=== PATIENT | male | born 2000 | race Caucasian/White ===

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

== ENCOUNTER 2019-02-03 22:55 | Emergency (ER) | payer SELFPAY ==
[2019-02-03 22:55] VITALS: BP 139/79; PULSE 99; RESP 16; TEMP 36.6; O2SAT 98; BMI 26.3
--- NOTE | 2019-02-03 23:31 | ED.VISSUMM ---
- ER Visit Summary Date of Service: 02/03/19 Chief Complaint: [Abscess to the neck] History of Present Illness: The patient is a 19 M [presents to the emergency department with an abscess to the base of his neck that is been there for a couple of months. Patient states that it hurts all the time now. Patient states that his girlfriend tried a pop and got large amount appearing debris from it. He denies any fevers. He is never had to have an incision and drainage before. Physical Examination: [HEENT-PERRLA, EOMI. Cranial nerves II through XII grossly intact. TMs clear. Mucous membranes moist. No adenopathy. Patient has a soft tissue swelling to the base of the neck posteriorly that measures about 4 cm in diameter with a central more fluctuant portion. There is some faint erythema noted. Cardiovascular-regular rate and rhythm without murmur or ectopy Lungs-clear to auscultation, chest wall stable without crepitus or subcu emphysema Abdomen-normoactive bowel sounds, soft, nontender, no rebound or rigidity, no peritoneal signs. Extremities-intact ?4, normal range of motion, normal pulses, atraumatic] Test Results: [None indicated] Emergency Department Course and Treatment: [Incision and drainage of the abscess was undertaken in the emergency department. Area was sterilely draped and prepped. Wound cleansed with Shur-Clens. Wound anesthetized locally with 1% lidocaine total of 4 cc. Using an 11 blade a 2 cm incision was made into the most fluctuant portion of suspected abscess and immediately a large amount of purulent debris was expressed. Using curved hemostats I was able to undermine soft tissues. The wound was irrigated. Small amount of packing was placed quarter inch iodoform gauze. Clean dressing applied.] Treatment Plan: [Patient will be referred to general surgery for follow-up. I suspect this may be a sebaceous cyst that may need complete excision at some point if it continues to recur.] Disposition: [Discharged home in stable condition] Impression: [Soft tissue abscess with incision and drainage] This note was generated with [employer] software. It may contain incorrect words, spelling, and punctuation that were not noted in review of the chart prior to signing ED Disposition - Plan for ED Patient: Referrals: Care Physician,No Primary [Primary Care Provider] -
--- NOTE | 2019-02-03 23:34 | ED.DEP ---
ED Disposition - Plan for ED Patient: Instructions: ED Abscess IandD Prescriptions: Cephalexin [Keflex] 500 mg PO Q6 #40 cap Referrals: Care Physician,No Primary [Primary Care Provider] - Elkin Bellamy MD [STAFF PHYSICIAN] - 5-7 Days
[2019-02-03] MEDS: Cephalexin 250 MG Capsule 500 MG PO (23:40)
== END 2019-02-03 23:43 | disposition home or self-care (01) ==
LOC: ED 23:40
PROVIDERS: Emergency Provider Emergency Medicine
DX: L02.11 Cutaneous abscess of neck (principal); F41.9 Anxiety disorder, unspecified; Z72.0 Tobacco use
CPT/HCPCS: 10060; 99284

== ENCOUNTER 2020-01-10 11:38 | Emergency (ER) | payer SELFPAY ==
[2020-01-10 11:38] VITALS: BP 163/107; PULSE 121; RESP 20; TEMP 36.8; O2SAT 97; BMI 29.1
--- NOTE | 2020-01-10 11:49 | RAD_ITS ---
STUDY: X-RAY CHEST REASON FOR EXAM: Male, 19 years old. SOB, SMOKER TECHNIQUE: Single AP portable view of the chest. COMPARISON: November 04, 2017 FINDINGS: The lungs are clear and expanded. There is no demonstrated pleural abnormality. Normal size heart. Normal mediastinum and cheryle. Normal visualized pulmonary arteries. Normal visualized aortic arch and descending thoracic aorta. Normal visualized thoracic spine. Normal visualized ribs, clavicles, and shoulders. There is no demonstrated abnormality of the visualized soft tissue structures of the upper abdomen. RAD/Chest 1 View (Portable) IMPRESSION: Normal x-ray examination of the chest. Electronically Signed: Emmanuel Larios MD at 12:45 EDT , Service support ,
--- NOTE | 2020-01-10 11:49 | EKG12_ITS ---
Test Reason : SOB Blood Pressure : / mmHG Vent. Rate : 104 BPM Atrial Rate : 104 BPM P-R Int : 172 ms QRS Dur : 078 ms QT Int : 330 ms P-R-T Axes : 032 032 -07 degrees QTc Int : 433 ms Sinus tachycardia Nonspecific T wave abnormality Abnormal ECG Confirmed by EMMA SMART, AMISHA ([id number]), photo editor SILVANO MANLEY ([id number]) on 01/12/2020 12:56:30 PM Referred By: BB Confirmed By:AMISHA CARTER MD
--- NOTE | 2020-01-10 11:50 | ED.DCSUM_ITS ---
History of Present Illness Chief Complaint: Shortness of Breath Informant: Patient Onset: Days - 5 Activity at onset: - - gradual onset Timing: Continuous Quality: - - tightness Current Severity: Mild Maximum Severity: Moderate Worsened by: Nothing Relieved by: Albuterol - for 5 minutes Associated Symptoms: Negative for: Cough, Fever Chest Pain: Continuous, Tightness - mild Narrative: Patient states he had mild asthma as a child but does not deal with it anymore. He has felt some chest tightness and shortness of breath for the past 5 days but no other symptoms. He presents during coronavirus national emergency, however has had no contact with anyone that he knows of that has been infected, and states since the stay at home orders have been issued he has stayed at home and he is local. No recent travel. No pain or swelling in his legs or history of DVT/PE. The discomfort is nonpleuritic and nonexertional. His mom had an albuterol MDI that she lent him, he tried some puffs from it and it helped temporarily but only for very short time. He has no other symptoms. No other recent illnesses. Past Medical History - Allergies and Home Meds Allergies/Adverse Reactions: Allergies No Known Allergies Allergy (Verified 01/10/20 11:38) Primary Care Physician: Care Physician,No Primary [Primary Care Provider] - Past Medical History: None Surgical History: no surgical history Smoking Status: Current every day smoker Review of Systems General: Denies: Chills, Fever, Sweats Eyes: Denies: Visual changes - bilaterally, Diplopia ENT: Denies: Bilateral ear pain, Rhinorrhea, Sore throat Cardiovascular: Reports: Chest pain. Denies: Palpitations, Heart racing Respiratory: Reports: Dyspnea. Denies: Cough, Dyspnea on exertion Gastrointestinal: Denies: Abdominal pain, Nausea, Vomiting, Diarrhea, Melena, Hematochezia Genitourinary: Denies: Dysuria, Hematuria, Frequency Musculoskeletal: Denies: Back pain, Extremity Pain Skin: Denies: Rash, Wounds Neurological: Denies: Headache, Weakness, Numbness Physical Exam Vital Signs/Narrative: Vital Signs Temp Pulse Resp BP Pulse Ox 01/10/20 11:38 98.3 F 121 H 20 H 163/107 H 97 Inital Vital Signs reviewed: Yes General: Well nourished, Well developed, No Acute Distress - Conversive in full sentences Head: Normocephalic, Atraumatic Eyes: Perrl, EOMI ENT: Moist mucous membranes, No rhinorrhea Neck: Supple, Nontender, No lymphadenopathy, No JVD Cardiovascular: Regular rate, Regular rhythm, No murmurs, Tachycardia Respiratory: No distress, CTA bilaterally, Chest nontender Abdomen: Soft, Nontender, Nondistended, Normal bowel sounds Back: Nontender, Normal Inspection Extremities: Nontender, No edema. Negative for: Calf Tenderness Skin: Normal color, No rash Neurological: Alert, Oriented x3, Cranial nerves II-XII grossly intact, Normal Strength, Normal Sensation Psychological: Normal affect, Normal Mood Diagnostic/Tx/Re-eval Impressions Chest X-Ray 01/10/20 11:49 IMPRESSION: Normal x-ray examination of the chest. Electronically Signed: Emmanuel Larios MD at 12:45 EDT , Service support , 01/10/20 11:49 Chest 1 View (Portable) [RAD] Stat Laboratory Results 01/10/20 01/10/20 01/10/20 13:00 13:00 13:00 WBC 9.9 RBC 5.08 Hgb 15.1 Hct 44.5 MCV 87.6 MCH 29.7 MCHC 33.9 RDW Std Deviation 37.5 RDW Coeff of [place] 11.7 Plt Count 331 MPV 9.7 Immature Gran % (Auto) 0.500 Neut % (Auto) 57.0 Lymph % (Auto) 31.5 [place] % (Auto) 8.1 Eos % (Auto) 2.2 Baso % (Auto) 0.7 Absolute Neuts (auto) 5.6 Absolute Lymphs (auto) 3.10 Nucleated RBC % 0 D-Dimer Quant (PE/DVT) 0.33 Sodium 141 Potassium 3.9 Chloride 107 Carbon Dioxide 29.0 Anion Gap 5 BUN 14 Creatinine 0.97 Estim Creat Clear Calc 133.33 Est GFR (MDRD) Af Amer 125 Est GFR (MDRD) Non-Af 103 BUN/Creatinine Ratio 14.4 Glucose 93 Calcium 9.2 - Rhythm Strip Rhythm Strip: Sinus Tach Rate: 115 Ectopy: None - EKG Initial EKG Interpretation: No Acute Injury Pattern, Sinus Tachycardia - 104, - - normal EKG Treatment - Dyspnea: Albuterol, Atrovent Repeat Evaluation: Improved - only very little - Medical Decision Making Initially obtained an EKG and a chest x-ray, both of which were normal, and gave the patient a duo nebulizer treatment to see if that helped, as my suspicion is that this is reactive airway in nature. However the DuoNeb only helped him very little, maybe not at all. His dyspnea is relatively mild in the first place, however given this I decided it might be better to obtain some blood work including a d-dimer, given his resting tachycardia. Luckily everything returned normal and negative. Given this, I think it would be most reasonable to put him on a prednisone burst to see if that helps and advised that he follow-up, he was referred to a PCP and he is comfortable with that plan. ED Disposition - Plan for ED Patient: Disposition: Home or Assisted Living Diagnosis: Dyspnea Instructions: ED Dyspnea, ED REACTIVE AIRWAY DISEASE Adult Prescriptions: Prednisone 40 mg PO DAILY #10 tab Prescription Printed Referrals: Vel,Nita, DO [NON-STAFF] - 1 Week if not improving
[2020-01-10] MEDS: Ipratropium/Albuterol Sulfate 3 ML AMPUL.NEB INHALATION (12:18)
[2020-01-10 12:25] VITALS: PULSE 106; RESP 16
[2020-01-10 12:59] VITALS: BP 151/85; PULSE 90; RESP 16; O2SAT 98
[2020-01-10 13:16] LABS: Absolute Neutrophil Count 5.6 X10^3/uL (2.0-7.7); Basophil# 0.07 X10^3/uL; Basophil% 0.7 % (0-1); Eosinophil# 0.22 X10^3/uL; Eosinophils% 2.2 % (0-5); Hematocrit 44.5 % (40-54); Hemoglobin 15.1 g/dL (13.0-16.5); Lymphocyte % 31.5 % (19-41); Mean Corp Hgb Conc 33.9 g/dL (32-36); Mean Corpuscular Hgb 29.7 pg (27.0-32.0); Mean Corpuscular Volume 87.6 fL (80-94); Mean Platelet Vol. 9.7 fl (6.2-12.0); Monocyte% 8.1 % (0-10); NRBC Flagged by Analyzer 0 % (0-5); Neutrophil # 5.61 X10^3/uL (2.7-7.7); Platelet Count 331 K/mm3 (150-450); RBC Distribution Width CV 11.7 % (11.6-14.6); RBC Distribution Width SD 37.5 fl (35.1-43.9); Red Blood Count 5.08 M/mm3 (4.6-6.2); White Blood Count 9.9 K/mm3 (4.4-11.0)
[2020-01-10 13:23] LABS: Anion Gap 5 (5-15); BUN 14 mg/dL (7-18); BUN/Creat Ratio 14.4 RATIO (10-20); Calcium,Total 9.2 mg/dL (8.5-10.1); Chloride 107 mmol/L (98-107); Creatinine, Serum 0.97 mg/dL (0.70-1.30); EST Glomerular Filtration Rate 103 mL/min (>60); Est Glom Filt Rate - Afr Amer 125 mL/min (>60); Estimated Creatinine Clearance 133.33 ml/min; Glucose 93 mg/dL (74-106); Potassium 3.9 mmol/L (3.5-5.1); Sodium Level 141 mmol/L (136-145)
[2020-01-10 13:29] LABS: D-Dimer Quantitative (DVT/PE) 0.33 FEU/ug/m (0.27-0.49)
[2020-01-10] MEDS: predniSONE 20 MG Tablet 40 MG PO (13:48)
[2020-01-10 13:53] VITALS: PULSE 86; RESP 16; O2SAT 96
== END 2020-01-10 13:57 | disposition home or self-care (01) ==
PROVIDERS: Emergency Provider Emergency Medicine
DX: R06.00 Dyspnea, unspecified (principal); R07.89 Other chest pain; F17.200 Nicotine dependence, unspecified, uncomplicated
CPT/HCPCS: 71045; 80048; 85025; 85379; 93005; 94640; 99284; A4216

== ENCOUNTER 2020-05-06 16:37 | Emergency (ER) | payer MEDICAID, SELFPAY ==
[2020-05-06 16:39] VITALS: BP 157/103; PULSE 99; RESP 16; TEMP 36.6; O2SAT 98; BMI 29.8
--- NOTE | 2020-05-06 17:22 | EKG12_ITS ---
Test Reason : ILLNESS Blood Pressure : / mmHG Vent. Rate : 083 BPM Atrial Rate : 083 BPM P-R Int : 164 ms QRS Dur : 086 ms QT Int : 362 ms P-R-T Axes : 014 013 -02 degrees QTc Int : 425 ms Normal sinus rhythm Normal ECG Confirmed by TANMAY SMART, IRMA ([id number]), non linear editor PINEDA MCGEE ([id number]) on 05/10/2020 8:42:51 AM Referred By: Confirmed By:IRMA DONATO MD
--- NOTE | 2020-05-06 17:45 | RAD_ITS ---
STUDY: X-RAY CHEST REASON FOR EXAM: Male, 20 years old. GENERALIZED WEAKNESS, FATIGUE AND and quot;NOT FEELING RIGHT and quot; FOR THE PAST 4 MONTHS, WORSENING RECENTLY TECHNIQUE: Frontal and lateral views of the chest. COMPARISON: 01/10/2020 FINDINGS: The lungs are clear and expanded. There is no demonstrated pleural abnormality. Normal size heart. Normal mediastinum and cheryle. Normal visualized pulmonary arteries. Normal visualized aortic arch and descending thoracic aorta. Normal visualized thoracic spine. Normal visualized ribs, clavicles, and shoulders. There is no demonstrated abnormality of the visualized soft tissue structures of the upper abdomen. RAD/Chest PA and Lateral IMPRESSION: Normal x-ray examination of the chest. Electronically Signed: Don Patel MD at 17:59 EDT , Service support ,
[2020-05-06 18:04] VITALS: BP 144/99; PULSE 97; RESP 16; O2SAT 97
[2020-05-06 18:10] LABS: Bacteria 0 SEEN /hpf (None Seen); Mucous, Urine 0 SEEN /hpf (<or=2+); Red Blood Cells-Urine 0 SEEN /hpf (0-5); Squamous Epithelial Cells - UA 0 SEEN /hpf (0-5); White Blood Cells 0 SEEN /hpf (0-5)
[2020-05-06 18:12] LABS: Absolute Lymphocyte Count 2.64 X10^3/uL (0.83-4.51); Absolute Neutrophil Count 9.1 X10^3/uL (2.0-7.7); Basophil# 0.09 X10^3/uL; Basophil% 0.7 % (0-1); Eosinophil# 0.18 X10^3/uL; Eosinophils% 1.4 % (0-5); Hematocrit 45.5 % (40-54); Hemoglobin 15.1 g/dL (13.0-16.5); Lymphocyte # 2.64 X10^3/ul (4.0); Lymphocyte % 20.3 % (19-41); Mean Corp Hgb Conc 33.2 g/dL (32-36); Mean Corpuscular Hgb 29.4 pg (27.0-32.0); Mean Corpuscular Volume 88.5 fL (80-94); Mean Platelet Vol. 9.8 fl (6.2-12.0); Monocyte# 0.93 X10^3/uL; Monocyte% 7.2 % (0-10); NRBC Flagged by Analyzer 0 % (0-5); Neutrophil # 9.08 X10^3/uL (2.7-7.7); Neutrophil % 69.9 % (47-70); Platelet Count 353 K/mm3 (150-450); RBC Distribution Width CV 11.8 % (11.6-14.6); Red Blood Count 5.14 M/mm3 (4.6-6.2)
[2020-05-06 18:21] LABS: Color, Urine Yellow (Yellow); Glucose, Dipstick Normal (Normal); Ketone-Dipstick 5 mg/dl (Negative); Leukocyte Esterase-Dipstick Negative /ul (Negative); Nitrite-Dipstick Negative (Negative); Occult Blood-Urine Negative /ul (Negative); Protein-Dipstick 15 mg/dl (Negative); Urine Bilirubin Dipstick Negative (Negative); Urine Clarity Sl. Cloudy (Clear); Urine Urobilinogen Normal (Normal)
[2020-05-06 18:34] LABS: Anion Gap 2 (5-15); BUN 13 mg/dL (7-18); BUN/Creat Ratio 12.7 RATIO (10-20); Calcium,Total 9.4 mg/dL (8.5-10.1); Chloride 110 mmol/L (98-107); Creatinine, Serum 1.02 mg/dL (0.70-1.30); EST Glomerular Filtration Rate 98 mL/min (>60); Est Glom Filt Rate - Afr Amer 118 mL/min (>60); Estimated Creatinine Clearance 125.74 ml/min; Glucose 89 mg/dL (74-106); Potassium 3.9 mmol/L (3.5-5.1); Sodium Level 140 mmol/L (136-145); Thyroid Stim Hormone (TSH) 1.47 uIU/mL (0.358-3.74)
[2020-05-06 18:36] LABS: Amorphous Sediment 1+
[2020-05-06 19:36] LABS: Internal QC Validated? YES +Cl - CLEAR BKGD; Monotest Negative (Negative)
--- NOTE | 2020-05-06 19:40 | ED.VIS.GEN ---
History of Present Illness Chief Complaint: Weakness Informant: Patient Onset: Month(s) Context: Gradual Onset Timing: Continuous Narrative: Patient is a 20-year-old male with no significant past medical history presenting with generalized weakness and malaise. Patient states he has been feeling normal for months but is been worse over the past month. Patient states that when he goes to play basketball he feels that his legs are like Jell-O and he has no energy to play. He states last summer he was able play basketball easily. He notes that over the past year he has had increased weight gain as well as decreased activity. He denies associated night sweats or rash. He denies any associated shortness of breath but intermittently feels that he has a hard time taking a breath. Patient states he does intermittently get a weird sensation in his left chest wall but has been associated with anxiety. He currently denies any chest pain or any abnormal sensations in his chest. He notes today he did have an episode of lightheadedness and nausea but no vomiting. He had a normal bowel movement yesterday. He does admit to tobacco use and minimal alcohol use but denies any drug use. He denies any urinary symptoms. He denies any sick contacts. He states he just got insurance so he is trying to get everything figured out. He has not seen a doctor in over 3 years and does not currently have a primary care doctor. Patient is not aware of any family history of any cardiac conditions. He notes his father does have a history of Graves' disease. He denies any other complaints at this time. Past Medical History - Allergies and Home Meds Allergies/Adverse Reactions: Allergies No Known Allergies Allergy (Verified 05/06/20 16:39) Primary Care Physician: Care Physician,No Primary [Primary Care Provider] - Past Medical History: - - ADHD Surgical History: no surgical history Smoking Status: Current every day smoker Alcohol: Occasional Drugs: None Review of Systems General: Reports: Malaise, - - Lightheaded. Denies: Chills, Fever, Sweats Eyes: Denies: Visual changes - bilaterally, Diplopia ENT: Denies: Rhinorrhea, Sore throat Cardiovascular: Reports: Chest pain. Denies: Palpitations Respiratory: Reports: - - Difficulty taking a deep breath. Denies: Dyspnea, Cough, Dyspnea on exertion Gastrointestinal: Reports: Nausea. Denies: Abdominal pain, Vomiting, Diarrhea, Melena, Hematochezia Genitourinary: Denies: Dysuria, Hematuria, Frequency Musculoskeletal: Denies: Back pain, Extremity Pain Skin: Denies: Rash, Wounds Neurological: Denies: Headache, Weakness, Numbness Psych: Reports: Anxiety. Denies: Depression Physical Exam Vital Signs/Narrative: Vital Signs Temp Pulse Resp BP Pulse Ox 05/06/20 18:04 97 16 144/99 H 97 05/06/20 16:39 98 F 99 16 157/103 H 98 Inital Vital Signs reviewed: Yes General: Well nourished, Well developed, No Acute Distress Head: Normocephalic, Atraumatic Eyes: Perrl, EOMI ENT: Moist mucous membranes, No rhinorrhea, - - Bilateral cerumen impactions Neck: Supple, Nontender, No JVD Cardiovascular: Regular rate, Regular rhythm, No murmurs Respiratory: No distress, CTA bilaterally, Chest nontender Abdomen: Soft, Nontender, Nondistended, Normal bowel sounds. Negative for: Guarding, Rebound tenderness Back: Nontender, Normal Inspection. Negative for: CVA tenderness Extremities: Nontender, No edema Skin: Normal color, No rash Neurological: Alert, Oriented x3, Cranial nerves II-XII grossly intact, Normal Strength, Normal Sensation Psychological: Normal affect, Normal Mood. Negative for: Tearful, Agitated Diagnostic/Tx/Re-eval Chest X-Ray - ED: 2 View, Read by ED Physician, Read by Radiologist, No Acute Disease Clinical Impression(s) from Imaging Studies Chest X-Ray 05/06/20 17:45 IMPRESSION: Normal x-ray examination of the chest. Electronically Signed: Don Patel MD at 17:59 EDT , Service support , Laboratory Data 05/06/20 05/06/20 05/06/20 18:00 18:00 18:00 WBC 13.0 H RBC 5.14 Hgb 15.1 Hct 45.5 MCV 88.5 MCH 29.4 MCHC 33.2 RDW Std Deviation 38.0 RDW Coeff of [place] 11.8 Plt Count 353 MPV 9.8 Immature Gran % (Auto) 0.500 Neut % (Auto) 69.9 Lymph % (Auto) 20.3 [place] % (Auto) 7.2 Eos % (Auto) 1.4 Baso % (Auto) 0.7 Absolute Neuts (auto) 9.1 H Absolute Lymphs (auto) 2.64 Nucleated RBC % 0 Sodium 140 Potassium 3.9 Chloride 110 H Carbon Dioxide 28.0 Anion Gap 2 L BUN 13 Creatinine 1.02 Estim Creat Clear Calc 125.74 Est GFR (MDRD) Af Amer 118 Est GFR (MDRD) Non-Af 98 BUN/Creatinine Ratio 12.7 Glucose 89 Calcium 9.4 Troponin I < 0.015 TSH 1.47 Urine Color Urine Clarity Urine pH Ur Specific [place] Urine Protein Urine Glucose (UA) Urine Ketones Urine Occult Blood Urine Nitrite Urine Bilirubin Urine Urobilinogen Ur Leukocyte Esterase Urine RBC Urine WBC Ur Squamous Epith Cells Amorphous Sediment Urine Bacteria Urine Mucus Monoscreen Negative 05/06/20 18:00 WBC RBC Hgb Hct MCV MCH MCHC RDW Std Deviation RDW Coeff of [place] Plt Count MPV Immature Gran % (Auto) Neut % (Auto) Lymph % (Auto) [place] % (Auto) Eos % (Auto) Baso % (Auto) Absolute Neuts (auto) Absolute Lymphs (auto) Nucleated RBC % Sodium Potassium Chloride Carbon Dioxide Anion Gap BUN Creatinine Estim Creat Clear Calc Est GFR (MDRD) Af Amer Est GFR (MDRD) Non-Af BUN/Creatinine Ratio Glucose Calcium Troponin I TSH Urine Color Yellow Urine Clarity Sl. Cloudy Urine pH 6.0 Ur Specific [place] 1.020 Urine Protein 15 H Urine Glucose (UA) Normal Urine Ketones 5 H Urine Occult Blood Negative Urine Nitrite Negative Urine Bilirubin Negative Urine Urobilinogen Normal Ur Leukocyte Esterase Negative Urine RBC 0 SEEN Urine WBC 0 SEEN Ur Squamous Epith Cells 0 SEEN Amorphous Sediment 1+ Urine Bacteria 0 SEEN Urine Mucus 0 SEEN Monoscreen - Rhythm Strip Rhythm Strip: Sinus Rhythm Rate: 83 Ectopy: None - EKG Initial EKG Interpretation: Sinus Rhythm, - - Normal sinus rhythm at a rate of 83 Normal intervals Normal axis Normal ST segments Compared to prior EKG on 01/10/2020 no significant change - Medical Decision Making Patient is evaluated for generalized malaise. His symptoms are quite nonspecific. He notes intermittent does have some chest pain does report anxiety.Patient EKG is normal. Chest x-rays not show any acute process. CBC has a mild leukocytosis of 13 but I do not have a source. Patient's BMP is remarkable only for a low anion gap of 2. Again this is nonspecific. His troponin is normal as well as his teeth TSH. Urinalysis shows 5 ketones but no signs of infection. Patient might have some corresponding mild dehydration. His mono screen is negative. The exact cause of symptoms is not clear. I do question of there could be a psychogenic cause such as depression. Patient will be given referral for outpatient PCP for further follow-up. Patient is counseled on signs and symptoms requiring return to the emergency room. Patient verbalizes agreement and understand this plan. Patient discharged home in stable and improved condition. ED Disposition - Plan for ED Patient: Disposition: Home or Assisted Living Diagnosis: Generalized weakness Instructions: ED Weakness [facility] Referrals: Nicolás Schulz MD [STAFF PHYSICIAN] - Counseling,Center [GROUP OF PHYSICIANS] -
[2020-05-06 20:04] VITALS: BP 138/70; PULSE 78; RESP 16; O2SAT 98
== END 2020-05-06 20:05 | disposition home or self-care (01) ==
PROVIDERS: Emergency Provider Emergency Medicine
DX: R53.1 Weakness (principal); R07.89 Other chest pain; E86.0 Dehydration; F90.9 Attention-deficit hyperactivity disorder, unspecified type; F17.200 Nicotine dependence, unspecified, uncomplicated
CPT/HCPCS: 71046; 80048; 81001; 84443; 84484; 85025; 86308; 93005; 99282; A4216

== ENCOUNTER 2023-03-04 13:32 | Emergency (ER) | payer MEDICAID, SELFPAY ==
[2023-03-04 13:34] VITALS: BP 129/91; PULSE 90; RESP 18; TEMP 36; O2SAT 99; BMI 29.2
--- NOTE | 2023-03-04 14:01 | ED.VIS.CHEST ---
HPI History of Present Illness Chief Complaint: Chest Pain PFSH PFSH Home Medications albuterol sulfate 90 mcg/actuation aerosol inhaler 1 inh inhalation Q6H PRN Wheezing 03/04/23 [History Last Taken Unknown] Allergy/AdvReac Type Severity Reaction Status Date / Time No Known Allergies Allergy Verified 03/04/23 13:33 Social History Smoking Status: Current every day smoker tobacco type: cigarettes EXAM Physical Exam Const Vital Signs: 03/04/23 13:34 03/04/23 14:26 03/04/23 13:54 Temperature 96.8 F L Temperature Source Temporal Pulse Rate 90 Respiratory Rate 18 Respiratory Effort Normal Non-Labored Blood Pressure 129/91 H Blood Pressure Mean 103 Pulse Ox 99 Oxygen Delivery Method Room Air Room Air Heart Score History: Slightly/Non-Suspicious ECG: Normal Age: </= 45 years Risk Factors: No Risk Factors Troponin: </= Normal Limit Score: 0 MDM MDM MDM Narrative Medical decision making narrative: HISTORY OF PRESENT ILLNESS: 23-year-old male here with chest pain. Patient states this began suddenly 6 hours ago is worse with a deep breath. Denies any vomiting. Denies any syncope. He denies any family history of early cardiac . He states the pain is sharp. Is not associate with cough or fever. He denies associated lower extremity edema. He denies any drug use such as methamphetamine or cocaine. The patient denies recent surgery in the last 4 weeks or immobilization in the last 3 days, denies previous diagnosis of DVT or PE, hemoptysis, unilateral leg swelling or malignancy with treatment the last 6 months. No estrogen use noted. Patient denies sudden onset of pain, no tearing sensation, no migratory symptoms, no new numbness, weakness or loss of sensation. Patient denies family history or personal history of Marfan syndrome or Jessee-Danlos REVIEW OF SYSTEMS: Pertinent positives: Chest pain, shortness of breath Pertinent negatives: Syncope, focal numbness or weakness PHYSICAL EXAM: Nursing triage notes reviewed, Vital signs reviewed Constitutional: please see mdm HENT: MMM Eyes: Pupils equal round and reactive to light, Extraocular muscles intact Neck: No stridor, no JVD, full neck ROM Lungs: Clear to auscultation, No wheezing or rales. No increased work of breathing, no conversational dyspnea, no accessory muscle use, no nasal flaring. No respiratory distress noted Heart: Regular rate and rhythm, No murmurs, No rubs and No gallops, 2+ distal pulses (radial, femoral, posterior tibial) in all extremities Abdomen: Soft, there is no tenderness, rigidity, rebound or guarding, no obvious peritoneal signs, no palpable pulsatile abdominal masses, no auscultated abdominal bruit : No CVAT Extremities: No edema Neuro: No focal neurological deficits, cranial nerves II through XII intact, 5/5 strength in all extremities. Intact sensation to light touch in all extremities, 2+ reflexes bilateral patella tendons. Normal gait. No ataxia. Skin: No rash or lesions noted MEDICAL DECISION MAKING: Chief Complaint: Chest pain, shortness of breath External records reviewed: No recent stress test, echocardiograms noted in the chart Factors affecting care: None Social determinants of health: None History obtained from others: Consults: ALL IMAGES HAVE BEEN PERSONALLY REVIEWED AND INTERPRETED BY MYSELF. MDM Narrative: The patient was hemodynamically stable, afebrile, nontoxic-appearing I considered the following differential diagnosis: Musculoskeletal chest pain, ACS, arrhythmia, anemia, electrolyte abnormalities, VTE, aortic dissection, rib fracture, pneumothorax I considered pulmonary embolism as a potential diagnosis. I considered obtaining a D-dimer or CTA of the chest however thought these tests were unnecessary given the patient's low risk Wells score, lack of tachycardia, lack of right heart strain on EKG, negative troponin and negative BNP. I considered aortic dissection as a potential diagnosis however patient no historical risk factors such as connective tissue diseases and no physical exam findings such as pulse deficits to suggest aortic dissection. I obtained a broad lab and imaging work-up to further elucidate the etiology the patient's complaints. EKG showed normal sinus rhythm with no ischemic changes. Troponin was negative, BNP was negative. He is not significantly anemic. The patient had no signs of electrolyte abnormalities. The etiology is uncertain however it does not appear to be life or limb threatening. Is likely musculoskeletal in origin. PE less likely given low risk Wells score. Aortic dissection is thought to be less likely given no sudden ripping or tearing pain, migratory pain, palpable pulse inequalities, no focal neurologic deficits concurrent with chest pain. Chance of dissection less than 10/1999. Pericarditis less likely given no pathognomonic EKG changes (no diffuse ST elevations, IL depressions). GI etiology (i.e. Boerhaave syndrome) less likely given no chest or neck crepitus, no vomiting or forced retching. Total critical care time today provided was at least 0 minutes. This excludes separately billable procedures. There was a high probability of clinically significant/life threatening deterioration in the patient's condition which required my urgent intervention. Shared decision making: I will have a discussion with the patient and or visitors regarding risk/benefits of further testing or admission. They will be made aware of of the risk/benefits inherent in this decision they will be given the opportunity to voice understanding. Lab Data Attestation: I reviewed the patient's lab results. Lab results narrative: CBC without leukocytosis, severe anemia, no thrombocytopenia. EKG with normal sinus rhythm, normal axis, normal intervals, no ST or T wave changes to suggest ischemia. No evidence of WPW, [place], ARVD. BMP without evidence of significant electrolyte abnormalities, no anion gap, no acute kidney injury. Troponin is negative, no evidence of myocardial ischemia BNP without evidence of volume overload, increased ventricular stretch or increased transmural wall pressure, not suggestive of CHF Labs: Laboratory Results - last 24 hr 03/04/23 03/04/23 03/04/23 14:39 14:39 14:39 WBC 8.1 RBC 5.05 Hgb 15.3 Hct 44.2 MCV 87.5 MCH 30.3 MCHC 34.6 RDW Std Deviation 38.6 RDW Coeff of [place] 12.1 Plt Count 340 MPV 9.8 Immature Gran % (Auto) 0.200 Neut % (Auto) 64.4 Lymph % (Auto) 26.0 [place] % (Auto) 6.4 Eos % (Auto) 2.1 Baso % (Auto) 0.9 Absolute Neuts (auto) 5.2 Absolute Lymphs (auto) 2.11 Nucleated RBC % 0 Sodium 142 Potassium 4.1 Chloride 108 H Carbon Dioxide 26.0 Anion Gap 8 BUN 10 Creatinine 0.89 Estim Creat Clear Calc 140.47 Est GFR (MDRD) Af Amer 135 Est GFR (MDRD) Non-Af 112 BUN/Creatinine Ratio 11.2 Glucose 101 Calcium 9.6 Troponin I High Sens 5 B-Natriuretic Peptide 6.4 Radiography Chest X-Ray - ED: Read by ED Physician Diagnostic Testing: Clinical Impression(s) from Imaging Studies Chest X-Ray 03/04/23 14:26 IMPRESSION: Normal x-ray examination of the chest. Electronically Signed: Cameron Casey MD at 16:13 EDT , I have personally reviewed the patient's chest x-ray. Chest x-ray is unremarkable for pulmonary edema, pneumothorax, pneumonia or focal cardiopulmonary abnormality. Treatment and Re-Evaluation :: I completed a HEART Score to screen for Major Adverse Cardiac Event (MACE) in this patient. The evidence indicates that the patient is very low risk for MACE and this is consistent with my clinical intuition. The risk of further workup or hospitalization for MACE is likely higher than the risk of the patient having a MACE. It is, therefore, in the patient?s best interest not to do additional emergent testing or to be hospitalized for MACE at this time. Shared Decision-Making No hospitalization indicated I have discussed with the patient my clinical impression and the result of the HEART Score to screen for MACE, as well as the risks of further testing and hospitalization. The HEART Score shows that the risk for MACE is less than 1%. Although the risk of MACE has not been completely eliminated, the risks of further testing or hospitalization for MACE likely exceed any potential benefit, and the patient agrees with not pursuing further emergent evaluation or hospitalization for MACE at this time. Discharge Plan Triage Chief Complaint: Chest Pain Other Complaint: Shortness of Breath ED Provider: Vish Bunn Dx/Rx/DC Orders Clinical Impression: Chest pain Instructions: Chest Pain [facility] Prescriptions: No Action albuterol sulfate 90 mcg/actuation Hfa Aerosol Inhaler 1 inh INHALATION Q6H PRN (Reason: Wheezing) Stand Alone Forms: ED Work / School Excuse Primary Care Provider: Care Physician,No Primary Referrals: [facility],Keri Wheatley [Non-Staff] - Activity Restrictions/Additional Instructions: Thank you for trusting us with your care today! Please take Tylenol (2 pills, 650 mg), ibuprofen (2 pills, 400 mg) every 6 hours as needed for pain and fever control. Please return to the emergency department if your symptoms change or worsen. Please follow with your primary care physician for further outpatient evaluation and management. Disposition Disposition: Home, Self Care
--- NOTE | 2023-03-04 14:26 | RAD_ITS ---
STUDY: X-RAY CHEST REASON FOR EXAM: Male, 23 years old. chest pain TECHNIQUE: Single AP portable view of the chest. COMPARISON: 05/06/2020. FINDINGS: The lungs are clear and expanded. There is no demonstrated pleural abnormality. Normal size heart. Normal mediastinum and cheryle. Normal visualized pulmonary arteries. Normal visualized aortic arch and descending thoracic aorta. Normal visualized thoracic spine. Normal visualized ribs, clavicles, and shoulders. There is no demonstrated abnormality of the visualized soft tissue structures of the upper abdomen. RAD/Chest 1 View (Portable) IMPRESSION: Normal x-ray examination of the chest. Electronically Signed: Cameron Casey MD at 16:13 EDT ,
[2023-03-04 14:50] LABS: Absolute Lymphocyte Count 2.11 X10^3/uL (0.83-4.51); Absolute Neutrophil Count 5.2 X10^3/uL (2.0-7.7); Basophil# 0.07 X10^3/uL; Basophil% 0.9 % (0-1); Eosinophil# 0.17 X10^3/uL; Eosinophils% 2.1 % (0-5); Hematocrit 44.2 % (40-54); Hemoglobin 15.3 g/dL (13.0-16.5); Lymphocyte # 2.11 X10^3/ul (0.83-4.51); Mean Corp Hgb Conc 34.6 g/dL (32-36); Mean Corpuscular Hgb 30.3 pg (27.0-32.0); Mean Corpuscular Volume 87.5 fL (80-94); Mean Platelet Vol. 9.8 fl (6.2-12.0); Monocyte# 0.52 X10^3/uL; Monocyte% 6.4 % (0-10); NRBC Flagged by Analyzer 0 % (0-5); Neutrophil # 5.22 X10^3/uL (2.7-7.7); Neutrophil % 64.4 % (47-70); Platelet Count 340 K/mm3 (150-450); RBC Distribution Width CV 12.1 % (11.6-14.6); RBC Distribution Width SD 38.6 fl (35.1-43.9); Red Blood Count 5.05 M/mm3 (4.6-6.2); White Blood Count 8.1 K/mm3 (4.4-11.0)
[2023-03-04 15:03] LABS: BNP,B-Type NATRIURETIC PEPTIDE 6.4 pg/mL (0-100)
[2023-03-04 15:06] LABS: Anion Gap 8 (5-15); BUN 10 mg/dL (7-18); BUN/Creat Ratio 11.2 RATIO (10-20); Calcium,Total 9.6 mg/dL (8.5-10.1); Chloride 108 mmol/L (98-107); Creatinine, Serum 0.89 mg/dL (0.70-1.30); EST Glomerular Filtration Rate 112 mL/min (>60); Est Glom Filt Rate - Afr Amer 135 mL/min (>60); Estimated Creatinine Clearance 140.47 ml/min; Glucose 101 mg/dL (74-106); Potassium 4.1 mmol/L (3.5-5.1); Sodium Level 142 mmol/L (136-145); Troponin-I HS 5 pg/mL (3.0-78.0)
[2023-03-04 16:28] VITALS: BP 126/78; PULSE 78; RESP 16; TEMP 36.6; O2SAT 100
== END 2023-03-04 16:28 | disposition home or self-care (01) ==
PROVIDERS: Emergency Provider Emergency Medicine; Visit Provider Emergency Medicine
DX: R07.9 Chest pain, unspecified (principal); F17.210 Nicotine dependence, cigarettes, uncomplicated; R06.02 Shortness of breath
CPT/HCPCS: 71045; 80048; 83880; 84484; 85025; 93005; 99284; A4216

== ENCOUNTER 2023-07-06 16:17 | Emergency (ER) | payer MEDICAID, SELFPAY ==
[2023-07-06 16:18] VITALS: BP 160/100; PULSE 103; RESP 14; TEMP 36.4; O2SAT 98; BMI 29.1
[2023-07-06 18:11] LABS: Absolute Lymphocyte Count 1.91 X10^3/uL (0.83-4.51); Absolute Neutrophil Count 6.2 X10^3/uL (2.0-7.7); Basophil# 0.05 X10^3/uL; Basophil% 0.6 % (0-1); Eosinophil# 0.14 X10^3/uL; Eosinophils% 1.6 % (0-5); Hematocrit 42.3 % (40-54); Hemoglobin 14.5 g/dL (13.0-16.5); Lymphocyte # 1.91 X10^3/ul (0.83-4.51); Lymphocyte % 21.3 % (19-41); Mean Corp Hgb Conc 34.3 g/dL (32-36); Mean Corpuscular Hgb 30.7 pg (27.0-32.0); Mean Corpuscular Volume 89.4 fL (80-94); Mean Platelet Vol. 9.8 fl (6.2-12.0); Monocyte# 0.61 X10^3/uL; Monocyte% 6.8 % (0-10); NRBC Flagged by Analyzer 0 % (0-5); Neutrophil # 6.22 X10^3/uL (2.7-7.7); Neutrophil % 69.3 % (47-70); Platelet Count 338 K/mm3 (150-450); RBC Distribution Width CV 11.9 % (11.6-14.6); RBC Distribution Width SD 38.7 fl (35.1-43.9); Red Blood Count 4.73 M/mm3 (4.6-6.2)
[2023-07-06 18:32] LABS: Anion Gap 2 (5-15); BUN 13 mg/dL (7-18); BUN/Creat Ratio 12.5 RATIO (10-20); Calcium,Total 9.2 mg/dL (8.5-10.1); Chloride 107 mmol/L (98-107); Creatinine, Serum 1.04 mg/dL (0.70-1.30); EST Glomerular Filtration Rate 93 mL/min (>60); Est Glom Filt Rate - Afr Amer 112 mL/min (>60); Estimated Creatinine Clearance 120.21 ml/min; Glucose 99 mg/dL (74-106); Sodium Level 139 mmol/L (136-145); Troponin-I HS 5 pg/mL (3.0-78.0)
--- NOTE | 2023-07-06 19:20 | EX.ED.DYSGE1 ---
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 He recovered okay came to the ER, he now feels completely better, and is concerned because his blood pressure was elevated in triage. He denies any abdominal pain, vomiting, shortness of breath, chest discomfort, or headache prodromal symptoms and no other prodromal symptoms [facility] Medical History Asthma Home Medications albuterol sulfate 90 mcg/actuation aerosol inhaler 1 inh inhalation Q6H PRN Wheezing 03/04/23 [History Last Taken Unknown] prednisone 20 mg tablet 20 mg PO DAILY #5 tabs 03/04/23 [Rx Last Taken Unknown] Allergy/AdvReac Type Severity Reaction Status Date / Time No Known Allergies Allergy Verified 03/04/23 13:33 Social History Smoking Status: Current every day smoker tobacco type: cigarettes ROS ROS ED Constitutional Constitutional ED: Denies chills or fever(s) Eyes Eyes: Denies change in vision or diplopia ENT ENT ED: Denies rhinorrhea or sore throat Cardiovascular Cardiovascular: Reports lightheadedness; Denies chest pain, palpitations or syncope Respiratory/Chest Respiratory/Chest: Denies cough or dyspnea Gastrointestinal Gastrointestinal: Reports nausea; Denies abdominal pain, diarrhea or vomiting Genitourinary Genitourinary ED: Denies dysuria or hematuria Musculoskeletal Musculoskeletal: Denies back pain or neck pain Integumentary Denies abscess or rash Neurologic Neurologic: Denies headache(s), paresthesias or weakness Psychiatric Psychiatric: Denies anxiety or suicidal thoughts EXAM Physical Exam Const Vital Signs: 07/06/23 16:18 07/06/23 18:14 Temperature 97.6 F L Temperature Source Temporal Pulse Rate 103 H Respiratory Rate 14 Respiratory Effort Short of Breath Blood Pressure 160/100 H Blood Pressure Mean 120 Pulse Ox 98 Oxygen Delivery Method Room Air Positive well nourished and well developed General Appearance ED: well developed and NAD HEENT Reports moist mucous membranes normocephalic and atraumatic Eyes PERRL and EOMs intact bilaterally Neck full ROM and supple Resp normal respiratory effort and clear to auscultation bilaterally Cardio regular rate, regular rhythm and no murmurs GI non-tender and non-distended Auscultation: normoactive bowel sounds Palpation: soft Back/Spine no CVA tenderness General Back: other FROM Extremity normal to inspection General Extremety ED: Negative for edema, pulses abnormal or tenderness General Extremity: Negative for edema or pulses abnormal Neuro oriented x3, CN's II-XII intact bilaterally and no sensory deficits noted Sensorium / Orientation: awake and alert Motor Exam: strength 5/5 throughout Skin no rashes or lesions noted and no wounds MDM MDM MDM Narrative Medical decision making narrative: Obtain labs including troponin, they are all normal. EKG is normal. Blood pressure pulse was 160/100, his other vital signs are unremarkable. Vasovagal near syncope is in the differential, as is a tachydysrhythmia, less likely to be related to his hypertension which I think is due to anxiety and him being here in the emergency department. Patient is ambulatory now without any symptoms and feels fine. Reassured, advised to follow-up with his doctor. Lab Data Attestation: I reviewed the patient's lab results. Labs: Laboratory Results - last 24 hr 07/06/23 18:00 WBC 9.0 RBC 4.73 Hgb 14.5 Hct 42.3 MCV 89.4 MCH 30.7 MCHC 34.3 RDW Std Deviation 38.7 RDW Coeff of [place] 11.9 Plt Count 338 MPV 9.8 Immature Gran % (Auto) 0.400 Neut % (Auto) 69.3 Lymph % (Auto) 21.3 [place] % (Auto) 6.8 Eos % (Auto) 1.6 Baso % (Auto) 0.6 Absolute Neuts (auto) 6.2 Absolute Lymphs (auto) 1.91 Nucleated RBC % 0 Sodium 139 Potassium 4.0 Chloride 107 Carbon Dioxide 30.0 Anion Gap 2 L BUN 13 Creatinine 1.04 Estim Creat Clear Calc 120.21 Est GFR (MDRD) Af Amer 112 Est GFR (MDRD) Non-Af 93 BUN/Creatinine Ratio 12.5 Glucose 99 Calcium 9.2 Troponin I High Sens 5 Rhythm Strip Rhythm Strip: Sinus Rhythm Rate: 90 Ectopy: None EKG Initial EKG: Attestation: I personally reviewed and interpreted this EKG as follows: Interpretation: Sinus Rhythm and No Acute Injury Pattern Comments: Normal EKG Discharge Plan Triage Chief Complaint: Nausea/Vomiting ED Provider: Emmanuel Hudson Dx/Rx/DC Orders Clinical Impression: Episode of hypertension, Vasovagal near syncope Instructions: ED Near-Fainting- Vagal Reaction Prescriptions: No Action albuterol sulfate 90 mcg/actuation Hfa Aerosol Inhaler 1 inh INHALATION Q6H PRN (Reason: Wheezing) prednisone 20 mg tablet 20 mg PO DAILY Qty: 5 0RF Primary Care Provider: Care Physician,No Primary Referrals: Lisa Valencia MD [Med Staff - Technology Internship] - 5-7 Days Disposition Disposition: Home, Self Care
== END 2023-07-06 19:41 | disposition home or self-care (01) ==
PROVIDERS: Emergency Provider Emergency Medicine; Visit Provider Emergency Medicine
DX: R55 Syncope and collapse (principal); I10 Essential (primary) hypertension; F17.210 Nicotine dependence, cigarettes, uncomplicated; J45.909 Unspecified asthma, uncomplicated; Z79.899 Other long term (current) drug therapy
CPT/HCPCS: 80048; 84484; 85025; 93005; 99284; A4216

== ENCOUNTER → 2024-07-18 | Outpatient (CLI) | payer MEDICAID, SELFPAY ==
--- NOTE | 2024-07-18 08:32 | US_ITS ---
STUDY: ABDOMINAL ULTRASOUND - RIGHT UPPER QUADRANT; ELASTOGRAPHY REASON FOR VISIT: Male, 24 years old. Fatty infiltration of the liver. TECHNIQUE: Ultrasound evaluation of the right upper quadrant was performed with real-time and static desai-scale imaging. Point quantification shear wave elastography was performed (Bambuser). TECHNICAL QUALITY: Adequate. COMPARISON: None. FINDINGS: Liver: The liver measures 16.3 cm. There is increased echogenicity consistent with fatty infiltration. The bile ducts are within normal limits. There is hepatic color flow. The direction of portal flow is hepatopetal. There is no demonstrated mass lesion. Median liver stiffness measured 5.9 kPa. Gallbladder: Normal distended gallbladder. The gallbladder wall measures 2.7 mm. There is a negative sonographic Palma''s sign. There is no pericholecystic fluid. There are no gallstones. Common Bile Duct (C.B.D.): The common bile duct measures 4.3 mm. Pancreas: There is normal echogenicity of the visualized pancreas. There is no demonstrated pancreatic mass or cyst. Right Kidney: Normal size of the right kidney. The right kidney measures 11.1 cm x 4.7 cm x 4.3 cm. Normal renal cortex. The right cortex measures 1.2 cm. There is no demonstrated renal mass or cyst. There is no right hydronephrosis. US/ABD Limited w/ Elastography IMPRESSION: 1. Liver stiffness measures 5.9 kPa compatible with F2-F3 (Mild to moderate liver fibrosis) Metavir score. 2. Fatty infiltration of the liver. Electronically Signed: Vimal Dimas MD at 12:42 EDT ,
[2024-07-18 09:30] LABS: International Normalized Ratio 1.1; Prothrombin Time (Protime)PT. 13.9 SECONDS (11.7-14.9)
[2024-07-18 09:32] LABS: Erythrocyte Sedimentation Rate 13 mm/hr (0-20)
[2024-07-18 09:34] LABS: Absolute Lymphocyte Count 3.28 X10^3/uL (0.83-4.51); Absolute Neutrophil Count 6.2 X10^3/uL (2.0-7.7); Basophil# 0.07 X10^3/uL; Basophil% 0.7 % (0-1); Eosinophil# 0.14 X10^3/uL; Eosinophils% 1.3 % (0-5); Hemoglobin 15.3 g/dL (13.0-16.5); Lymphocyte # 3.28 X10^3/ul (0.83-4.51); Mean Corp Hgb Conc 33.3 g/dL (32-36); Mean Corpuscular Volume 87.3 fL (80-94); Mean Platelet Vol. 9.9 fl (6.2-12.0); Monocyte# 0.81 X10^3/uL; Monocyte% 7.6 % (0-10); NRBC Flagged by Analyzer 0 % (0-5); Neutrophil # 6.24 X10^3/uL (2.7-7.7); Neutrophil % 58.9 % (47-70); Platelet Count 413 K/mm3 (150-450); RBC Distribution Width CV 11.9 % (11.6-14.6); RBC Distribution Width SD 38.5 fl (35.1-43.9); Red Blood Count 5.27 M/mm3 (4.6-6.2); White Blood Count 10.6 K/mm3 (4.4-11.0)
[2024-07-18 10:57] LABS: AST(SGOT) 31 U/L (15-37); Alanine Aminotransfer ALT/SGPT 108 U/L (16-61); Albumin, Serum 4.4 g/dL (3.2-5.0); Alkaline Phosphatase 63 U/L (45-117); Anion Gap 6 (5-15); BUN 14 mg/dL (7-18); BUN/Creat Ratio 14.1 RATIO (10-20); CPK Total, Creatine Kinase 142 U/L (39-308); CRP < 2.90 mg/L (0.0-3.0); Chloride 104 mmol/L (98-107); Creatinine, Serum 0.99 mg/dL (0.70-1.30); EST Glomerular Filtration Rate 98 mL/min (>60); Est Glom Filt Rate - Afr Amer 118 mL/min (>60); Globulin 4.2 g/dL (2.2-4.2); Glucose 93 mg/dL (74-106); Potassium 3.8 mmol/L (3.5-5.1); Protein, Total 8.6 g/dL (6.4-8.2); Sodium Level 137 mmol/L (136-145)
[2024-07-20 15:07] LABS: Anti-Centromere B Ab <0.2 AI (0.0-0.9); Anti-Chromatin <0.2 AI (0.0-0.9); Anti-Jo <0.2 AI (0.0-0.9); Anti-Mitochondrial AB <20.0 Units (0.0-20.0); Anti-Scleroderma-70 AB <0.2 AI (0.0-0.9); Anti-dsDNA Ab <1 IU/mL (0-9); RNP Ab <0.2 AI (0.0-0.9); SJOGREN'S Anti-SS-A test < 0.2 AI (0.0-0.9); SJOGREN'S Anti-SS-B test < 0.2 AI (0.0-0.9); Smith Ab <0.2 AI (0.0-0.9)
[2024-07-21 15:08] LABS: Aldolase 6.8 U/L (3.3-10.3); Angiotensin Convert Enzyme 39 U/L (14-82); Anti-Smooth Muscle ABS 14 Units (0-19); Cytoplasmic Ab (C-ANCA) <1:20 titer (Neg:<1:20); Endomysial Antibody IgA Negative (Negative); IgG, Quant 1236 mg/dL (603-1613); Immunoglobulin A 372 mg/dL (90-386); Immunoglobulin G, Subclass 1 566 mg/dL (248-810); Immunoglobulin G, Subclass 2 498 mg/dL (130-555); Immunoglobulin G, Subclass 3 96 mg/dL (15-102); Immunoglobulin G, Subclass 4 57 mg/dL (2-96); Perinuclear Ab (P-ANCA) <1:20 titer (Neg:<1:20); t-Transglutaminase IgA <2 U/mL (0-3)
== END | disposition home or self-care (01) ==
PROVIDERS: Referring Provider Student in an Organized Health Care Education/Training Program; Visit Provider Student in an Organized Health Care Education/Training Program
DX: R74.8 Abnormal levels of other serum enzymes (principal); K76.0 Fatty (change of) liver, not elsewhere classified
CPT/HCPCS: 86703; 76705; 76981; 80053; 82085; 82164; 82550; 82784; 82787; 83516; 85025; 85610; 85652; 86037; 86140; 86225; 86235; 86255

== ENCOUNTER → 2024-09-08 | Outpatient (CLI) | payer MEDICAID, SELFPAY ==
[2024-09-08 16:39] LABS: AST(SGOT) 29 U/L (15-37); Alanine Aminotransfer ALT/SGPT 89 U/L (16-61); Albumin, Serum 4.3 g/dL (3.2-5.0); Alkaline Phosphatase 61 U/L (45-117); Anion Gap 7 (5-15); BUN 14 mg/dL (7-18); BUN/Creat Ratio 14.8 RATIO (10-20); Calcium,Total 9.7 mg/dL (8.5-10.1); Chloride 105 mmol/L (98-107); Creatinine, Serum 0.95 mg/dL (0.70-1.30); EST Glomerular Filtration Rate 103 mL/min (>60); Est Glom Filt Rate - Afr Amer 124 mL/min (>60); Globulin 4.3 g/dL (2.2-4.2); Glucose 99 mg/dL (74-106); Potassium 3.9 mmol/L (3.5-5.1); Protein, Total 8.6 g/dL (6.4-8.2); Sodium Level 138 mmol/L (136-145)
[2024-09-14 17:07] LABS: Dopamine, Pl <30 pg/mL (0-48); Epinephrine, Pl 74 pg/mL (0-62); Norepinephrine, Pl 364 pg/mL (0-874)
== END | disposition home or self-care (01) ==
LOC: BWCLAB 15:17
PROVIDERS: Referring Provider Student in an Organized Health Care Education/Training Program; Visit Provider Student in an Organized Health Care Education/Training Program
DX: R74.8 Abnormal levels of other serum enzymes (principal)
CPT/HCPCS: 36415; 80053; 82384; 82533

== ENCOUNTER → 2024-10-02 | Outpatient (CLI) | payer MEDICAID, SELFPAY ==
--- NOTE | 2024-10-02 18:14 | CT_ITS ---
INDICATION: elevated LFTs EXAMINATION: CT Abdomen And Pelvis W/ Contrast Injection TECHNIQUE: Helically acquired images were obtained of the abdomen and pelvis with sagittal and coronal reconstructed images. Individualized dose optimization techniques were used for this CT. IV contrast dosage and agent: 100 mL of Isovue-[id number]. Oral contrast: Contrast seen in the small bowel and colon. COMPARISON: None. FINDINGS: VESSELS: No abdominal aortic aneurysm or dissection. LIVER: No evidence of a mass. No intrahepatic or extrahepatic biliary duct dilation. Diffuse decreased attenuation of the liver. GALLBLADDER: No calcified stones. No evidence of cholecystitis. PANCREAS: No focal solid or cystic mass. No evidence of pancreatitis. SPLEEN: Normal. ADRENAL GLANDS: Normal. KIDNEYS AND URETERS: No urinary tract stone. No hydronephrosis or hydroureter. No significant asymmetric perinephric stranding. URINARY BLADDER: Unremarkable. BOWEL: No evidence of diverticulosis or diverticulitis. Appendix appears normal. No evidence of bowel obstruction. REPRODUCTIVE ORGANS: No evidence of a pelvic mass. PERITONEUM: No intraabdominal free fluid or free air. LYMPH NODES: No pathologically enlarged mesenteric or retroperitoneal lymph nodes. ABDOMINAL WALL: No abdominal or pelvic wall hernia. BONES: No acute abnormality. LOWER CHEST: Visualized lung bases are unremarkable. CT/Abdomen/Pelvis WITH Contrast IMPRESSION: 1. No acute abnormality. 2. Fatty infiltration of the liver. Electronically Signed: Gregory Vanegas DO at 7:52 EST ,
== END | disposition home or self-care (01) ==
LOC: CT 18:11
PROVIDERS: Referring Provider Student in an Organized Health Care Education/Training Program; Visit Provider Student in an Organized Health Care Education/Training Program
DX: R94.5 Abnormal results of liver function studies (principal)
CPT/HCPCS: 74177; Q9967

== ENCOUNTER → 2024-10-26 | Outpatient (CLI) | payer MEDICAID, SELFPAY ==
--- NOTE | 2024-10-26 11:10 | ECHOD_ITS ---
Reason For Study: Palpitations Procedure This was a 2D Doppler, Color Flow transthoracic echocardiogram. Exam performed in department. Left Ventricle Normal LV size. Left ventricular systolic function is normal. The left ventricular ejection fraction is 65 %. No regional wall motion abnormalities noted. Right Ventricle Normal RV size. Normal systolic function. Atria Normal left atrium. Normal right atrium. Mitral Valve Normal mitral valve. Tricuspid Valve Normal tricuspid valve. Aortic Valve Trisinus/trileaflet aortic valve. Pulmonic Valve Normal pulmonic valve. Great Vessels Normal aortic root. The pulmonary artery is normal size. Normal inferior vena cava. Pericardium/Pleural No pericardial effusion. MMode/2D Measurements & Calculations LVIDd: 5.1 cm IVSd: 1.1 cm Ao root diam: 3.2 cm LVIDs: 3.8 cm LVPWd: 1.00 cm RVDd: 3.1 cm FS: 24.9 % LAV(MOD-bp): 40.1 ml LVAd ap4: 32.9 cm2 SV(MOD-sp4): 63.1 ml LAV(MOD-bp) Indexed: 18.3 ml/m2 LVLd ap4: 8.6 cm SI(MOD-sp4): 28.7 ml/m2 LAV(MOD-sp2): 30.7 ml EDV(MOD-sp4): 101.8 ml LAV(MOD-sp4): 40.7 ml EDV(sp4-el): 106.3 ml LVAs ap4: 18.3 cm2 LVLs ap4: 7.4 cm ESV(MOD-sp4): 38.7 ml ESV(sp4-el): 38.5 ml EF(MOD-sp4): 62.0 % EF(sp4-el): 63.8 % SV(sp4-el): 67.8 ml LA A4 area: 16.7 cm2 LA dimension(2D): 3.1 cm RA A4 area: 11.4 cm2 Time Measurements MV dec time: 0.23 sec Doppler Measurements & Calculations MV E max jet: 81.6 cm/sec Lat Peak E' Jet: 18.8 cm/sec Med Peak E' Jet: 10.8 cm/sec MV A max jet: 62.8 cm/sec E/E' lat: 4.3 E/E' med: 7.5 MV E/A: 1.3 MV V2 max: 80.6 cm/sec Ao V2 max: 100.3 cm/sec MV max P.6 mmHg MV dec slope: 379.9 cm/sec2 Ao max P.0 mmHg MV V2 mean: 57.3 cm/sec Ao V2 mean: 70.6 cm/sec MV mean P.4 mmHg Ao mean P.3 mmHg MV V2 VTI: 21.0 cm Ao V2 VTI: 19.6 cm AV (velocity ratio): 1.1 LV V1 max: 99.4 cm/sec PA V2 max: 104.5 cm/sec LV V1 max P.0 mmHg PA V2 mean: 72.3 cm/sec LV V1 mean P.0 mmHg LV V1 mean: 64.9 cm/sec LV V1 VTI: 21.5 cm ECHO/Echo Complete Interpretation Summary Normal LV size. Left ventricular systolic function is normal. The left ventricular ejection fraction is 65 %. Structurally normal valves. Ordering Physician: Shelton Garcia Referring Physician: Shelton Garcia Performed By: Minal Moreno RCS
== END | disposition home or self-care (01) ==
LOC: CVS 11:07
PROVIDERS: Referring Provider Nurse Practitioner Family; Visit Provider Nurse Practitioner Family
DX: R00.0 Tachycardia, unspecified (principal); R00.2 Palpitations; R07.9 Chest pain, unspecified
CPT/HCPCS: 93225; 93226; 93306

== ENCOUNTER → 2024-12-17 | Outpatient (CLI) | payer MEDICAID, SELFPAY ==
[2024-12-17 17:30] LABS: D-Dimer Quantitative (DVT/PE) < 0.27 FEU/ug/m (0.27-0.49)
[2024-12-17 18:29] LABS: Vitamin B12 458 pg/mL (180-914); Vitamin D,25 Hydroxy 12.5 ng/mL (30-100)
[2024-12-21 15:08] LABS: EBV Early Antigen IgG <9.0 U/mL (0.0-8.9); EBV-VCA IgG 22.4 U/mL (0.0-17.9)
== END | disposition home or self-care (01) ==
LOC: BWCLAB 14:12
PROVIDERS: PCP Internal Medicine; Referring Provider Internal Medicine; Visit Provider Internal Medicine
DX: R53.83 Other fatigue (principal); R51.9 Headache, unspecified; R07.9 Chest pain, unspecified
CPT/HCPCS: 36415; 82306; 82607; 85379; 86663; 86665

== ENCOUNTER → 2025-01-07 | Outpatient (CLI) | payer MEDICAID, SELFPAY ==
[2025-01-07 17:42] LABS: Ammonia 30.7 umol/L (16-60)
[2025-01-07 18:34] LABS: ALB/GLOB Ratio 1.3 RATIO (0.9-2.4); AST(SGOT) 44 U/L (<=37); Alanine Aminotransfer ALT/SGPT 120 U/L (<=46); Albumin, Serum 4.8 g/dL (3.5-5.0); Alkaline Phosphatase 62 U/L (40-129); Anion Gap 15 (5-15); BUN 14 mg/dL (4-19); BUN/Creat Ratio 16.2 RATIO (10-20); CORTISOL PM 9.56 ug/dL (2.68-10.50); Carbon Dioxide 22.2 mmol/L (21.0-32.0); Chloride 104 mmol/L (98-108); Creatinine, Serum 0.89 mg/dL (0.70-1.20); EST Glomerular Filtration Rate 122 (>60); Globulin 3.6 g/dL (2.2-4.2); Glucose 90 mg/dL (70-99); Potassium 3.9 mmol/L (3.3-5.1); Protein, Total 8.4 g/dL (5.9-8.4); Sodium Level 141 mmol/L (133-145)
[2025-01-07 18:45] LABS: Erythrocyte Sedimentation Rate 12 mm/hr (0-20)
[2025-01-07 19:41] LABS: CRP < 3.00 mg/L (0.0-3.0); LDH 173 U/L (87-241)
== END | disposition home or self-care (01) ==
LOC: BWCLAB 16:21
PROVIDERS: PCP Internal Medicine; Referring Provider Internal Medicine Gastroenterology; Visit Provider Internal Medicine Gastroenterology
DX: R00.2 Palpitations (principal); R82.5 Elevated urine levels of drugs, medicaments and biological substances; R00.0 Tachycardia, unspecified
CPT/HCPCS: 36415; 80053; 82088; 82140; 82533; 82941; 83615; 84146; 84244; 85652; 86003; 86005; 86140

== ENCOUNTER → 2025-01-11 | Outpatient (CLI) | payer MEDICAID, SELFPAY | END | disposition home or self-care (01) | LOC: LABSPEC 14:17 | PROVIDERS: PCP Internal Medicine; Referring Provider Internal Medicine Gastroenterology; Visit Provider Internal Medicine Gastroenterology | DX: R00.2 Palpitations (principal); R82.5 Elevated urine levels of drugs, medicaments and biological substances; R00.0 Tachycardia, unspecified ==

== ENCOUNTER → 2025-01-12 | Outpatient (CLI) | payer MEDICAID, SELFPAY | END | disposition home or self-care (01) | LOC: SL 16:08 | PROVIDERS: PCP Internal Medicine; Referring Provider Internal Medicine; Visit Provider Internal Medicine | DX: G47.10 Hypersomnia, unspecified (principal); R29.818 Other symptoms and signs involving the nervous system ==

== ENCOUNTER → 2025-01-13 | Outpatient (CLI) | payer MEDICAID, SELFPAY | END | disposition home or self-care (01) | LOC: LABSPEC 08:06 | PROVIDERS: PCP Internal Medicine; Referring Provider Internal Medicine Gastroenterology; Visit Provider Internal Medicine Gastroenterology | DX: R00.2 Palpitations (principal); R82.5 Elevated urine levels of drugs, medicaments and biological substances; R00.0 Tachycardia, unspecified | CPT/HCPCS: 82384; 84585 ==

== ENCOUNTER → 2025-01-27 | Outpatient (CLI) | payer MEDICAID, SELFPAY ==
[2025-01-27 08:10] LABS: Porphobilinogen, 24 Hr UR REF LAB
== END | disposition home or self-care (01) ==
LOC: LABSPEC 08:05
PROVIDERS: PCP Internal Medicine; Referring Provider Internal Medicine Gastroenterology; Visit Provider Internal Medicine Gastroenterology
DX: R00.2 Palpitations (principal); R82.5 Elevated urine levels of drugs, medicaments and biological substances; R00.0 Tachycardia, unspecified
CPT/HCPCS: 82530; 83497; 84110; 84120

== ENCOUNTER 2025-07-19 20:55 | Emergency (ER) | payer MEDICAID, SELFPAY ==
[2025-07-19 20:57] VITALS: BP 135/107; PULSE 107; RESP 16; TEMP 36.8; O2SAT 97
--- NOTE | 2025-07-19 21:02 | EKG12_ITS ---
Test Reason : DYSRHYTHMIA Blood Pressure : */* mmHG Vent. Rate : 93 BPM Atrial Rate : 93 BPM P-R Int : 170 ms QRS Dur : 80 ms QT Int : 336 ms P-R-T Axes : 35 18 -14 degrees QTcB Int : 417 ms Normal sinus rhythm Nonspecific T wave abnormality Abnormal ECG When compared with ECG of 06-Jul-2023 16:26, No significant change was found Confirmed by TANMAY SMART, IRMA ([id number]), rewrite editor OSEAS BOSTON ([id number]) on 07/22/2025 6:25:35 AM Referred By: Confirmed By: IRMA DONATO MD
[2025-07-19 21:18] LABS: Hematocrit 44.0 % (40-54); Hemoglobin 15.1 g/dL (13.0-16.5); Immature Granulocytes Count 0.030 X10^3/uL (0.0-0.0); Mean Corp Hgb Conc 34.3 g/dL (32-36); Mean Corpuscular Volume 85.6 fL (80-94); Mean Platelet Vol. 9.6 fl (6.2-12.0); NRBC Flagged by Analyzer 0 % (0-5); Platelet Count 349 K/mm3 (150-450); RBC Distribution Width CV 11.9 % (11.6-14.6); RBC Distribution Width SD 37.3 fl (35.1-43.9); Red Blood Count 5.14 M/mm3 (4.6-6.2); White Blood Count 9.3 K/mm3 (4.4-11.0)
--- NOTE | 2025-07-19 21:36 | RAD_ITS ---
PROCEDURE: CHEST PA AND LATERAL 07/19/2025 REASON FOR EXAM: CHEST PAIN TECHNIQUE: Procedure Code: RADCXR Modality: DX Procedure: CHEST PA AND LATERAL FINDINGS: The heart is normal in size. The lungs are clear. No acute osseous abnormalities. RAD/Chest PA and Lateral IMPRESSION: NO ACUTE FINDINGS. Reading Location: [id number]
[2025-07-19 22:00] LABS: Anion Gap 12 (5-15); BUN 12 mg/dL (4-19); BUN/Creat Ratio 13.0 RATIO (10-20); Calcium,Total 9.5 mg/dL (7.6-11.0); Carbon Dioxide 24.2 mmol/L (21.0-32.0); Chloride 103 mmol/L (98-108); Glucose 125 mg/dL (70-99); Potassium 3.5 mmol/L (3.3-5.1); Troponin T High Sensitivity < 6 ng/L (<=22)
--- NOTE | 2025-07-19 23:02 | ED.RN ---
Pt states I feel better. I think it's just my POTS and my chest pain is gone. Pt LWBS, IV removed per pt request to leave.
== END 2025-07-19 23:07 | disposition left against medical advice (07) ==
LOC: ED 23:06
PROVIDERS: PCP Internal Medicine
DX: R07.9 Chest pain, unspecified (principal)
CPT/HCPCS: 71046; 80048; 84484; 85025; 93005; 99282